=== PATIENT | female | born 1970 | race Caucasian/White ===

== ENCOUNTER 2019-02-06 20:19 | Observation (INO) | payer MEDICARE ==
[~2019-02-06] VITALS: Ht 170.2 cm; Wt 68.6 kg
[2019-02-06] MEDS ORDERED: BAYER CHEWABLE81 MG PO (20:21)
[2019-02-06] MEDS ORDERED: ESTRACE2 MG PO (20:22)
[2019-02-06] MEDS ORDERED: LIPITOR80 MG PO (20:22)
[2019-02-06] MEDS ORDERED: CYCLOBENZAPRINE10 MG PO (20:22)
[2019-02-06] MEDS ORDERED: KLONOPIN1 MG PO (20:22)
[2019-02-06] MEDS ORDERED: LINZESS145 MCG PO (20:23)
[2019-02-06] MEDS ORDERED: PROTONIX40 MG PO (20:23)
[2019-02-06] MEDS ORDERED: NEURONTIN 300300 MG PO (20:23)
[2019-02-06] MEDS ORDERED: EFFEXOR75 MG PO (20:23)
[2019-02-06 20:27] VITALS: BP 130/88
[2019-02-06 20:57] LABS: BASOPHILS 0.2 % (0-2); EOSINOPHILS 1.2 % (0-7); HEMATOCRIT 42.5 % (36.0-48.0); HEMOGLOBIN 15.1 g/dL (12-16); IMMATURE GRANULOCYTES 0.4 % (0-5); LYMPHOCYTES 40.4 % (15-50); MCH 33.4 pg (26.0-34.0); MCHC 35.5 g/dL (31.0-37.0); MEAN PLATELET VOLUME 10.2 fL (7.4-10.4); MONOCYTES 8.3 % (2-11); NEUTROPHILS 49.5 % (40-80); RBC 4.52 10x6/uL (4.00-5.40); RDW 14.2 % (11.5-14.5); WBC 8.1 10x3/uL (4.8-10.8)
[2019-02-06 21:01] LABS: PLATELET COUNT 241 10x3/uL (130-400)
[2019-02-06 21:10] LABS: ALBUMIN 3.8 g/dL (3.4-5.0); ALKALINE PHOSPHATASE 95 U/L (46-116); ALT (SGPT) 16 U/L (10-68); BILIRUBIN - TOTAL 0.33 mg/dL (0.2-1.3); CALC OSMOLALITY 276 mosm/kg (275-300); CALCIUM 9.2 mg/dL (8.5-10.1); CARBON DIOXIDE 27.2 mmol/L (21.0-32.0); CHLORIDE - SERUM 104 mmol/L (98-107); CREATININE - SERUM 0.7 mg/dL (0.6-1.3); GLUCOSE 103 mg/dL (74-106); POTASSIUM - SERUM 3.7 mmol/L (3.5-5.1); PROTEIN - SERUM 7.4 g/dL (6.4-8.2); SODIUM 139 mmol/L (136-145); UREA NITROGEN 10 mg/dL (7-18); eGFR NON AFRICAN AMERICAN > 90 mL/min (90-120)
[2019-02-06 21:20] LABS: APTT 29.8 SECONDS (22.8-39.4); INR 0.93 (0.85-1.17)
[2019-02-06 21:21] LABS: CKMB 0.9 U/L (0.0-3.6); CREATINE KINASE 76 UL (21-215); MAGNESIUM - SERUM 1.8 mg/dL (1.8-2.4)
[2019-02-06 21:24] LABS: TROPONIN-I < 0.017 ng/mL (0.000-0.060)
[2019-02-06 21:25] LABS: CKMB 0.8 U/L (0.0-3.6); CREATINE KINASE 77 UL (21-215); TROPONIN-I < 0.017 ng/mL (0.000-0.060)
--- NOTE | 2019-02-06 21:50 | NUR ---
ADMIT TO ROOM 2113 FROM ER. ALERT/ORIENTED. AMBULATORY. PIV TO LEFT A/C. TELEMETRY STARTED. SR 64. ADMISSION HISTORY AND ASSESSMENT COMPLETED. HOME MEDS REVIEWED. PLAN OF CARE INSTRUCTED ON AND PT NOW RESTING IN BED. DENIES CHEST PAIN AT THIS TIME.
[2019-02-06 23:05] VITALS: BP 146/86; Ht 170.2 cm; Wt 68.6 kg
[2019-02-07] VITALS: BP 146/100
[2019-02-07 02:50] LABS: BASOPHILS 0.4 % (0-2); EOSINOPHILS 1.5 % (0-7); HEMATOCRIT 41.4 % (36.0-48.0); HEMOGLOBIN 14.3 g/dL (12-16); IMMATURE GRANULOCYTES 0.1 % (0-5); LYMPHOCYTES 49.9 % (15-50); MCH 32.4 pg (26.0-34.0); MCHC 34.5 g/dL (31.0-37.0); MCV 93.9 fL (80.0-100.0); MEAN PLATELET VOLUME 10.4 fL (7.4-10.4); NEUTROPHILS 39.1 % (40-80); PLATELET COUNT 229 10x3/uL (130-400); RBC 4.41 10x6/uL (4.00-5.40); RDW 14.4 % (11.5-14.5); WBC 6.9 10x3/uL (4.8-10.8)
[2019-02-07 03:24] LABS: ALBUMIN 3.6 g/dL (3.4-5.0); ALKALINE PHOSPHATASE 87 U/L (46-116); ALT (SGPT) 14 U/L (10-68); BILIRUBIN - TOTAL 0.32 mg/dL (0.2-1.3); CALC OSMOLALITY 277 mosm/kg (275-300); CALCIUM 9.1 mg/dL (8.5-10.1); CARBON DIOXIDE 27.6 mmol/L (21.0-32.0); CHLORIDE - SERUM 106 mmol/L (98-107); CKMB 1.2 U/L (0.0-3.6); CREATINE KINASE 69 UL (21-215); CREATININE - SERUM 0.8 mg/dL (0.6-1.3); GLUCOSE 99 mg/dL (74-106); POTASSIUM - SERUM 3.8 mmol/L (3.5-5.1); PROTEIN - SERUM 6.9 g/dL (6.4-8.2); SODIUM 140 mmol/L (136-145); TROPONIN-I < 0.017 ng/mL (0.000-0.060); UREA NITROGEN 9 mg/dL (7-18); eGFR NON AFRICAN AMERICAN 80 mL/min (90-120)
[2019-02-07 04:00] VITALS: BP 137/91
--- NOTE | 2019-02-07 04:03 | NUR ---
PT RESTING. EKG DONE EARLIER SHOWED SB. KEEPING NPO UNTIL SEEN BY RECYCLE COORDINATOR IN AM.
--- NOTE | 2019-02-07 07:15 | NUR ---
RECEIVED PT IN BED AAOX4 RESP UNLABORED SKIN W/D COLOR WNL DENIES ANY NEEDS OR DISCOMFORT NAD NOTED
[2019-02-07 08:50] VITALS: BP 155/85
[2019-02-07 09:33] LABS: CKMB 0.9 U/L (0.0-3.6); CREATINE KINASE 64 UL (21-215)
[2019-02-07 09:35] LABS: TROPONIN-I < 0.017 ng/mL (0.000-0.060)
[2019-02-07 12:30] VITALS: BP 161/97
[2019-02-07] MEDS ORDERED: CARDIZEM CD120 MG PO (17:11)
--- NOTE | 2019-02-07 18:20 | NUR ---
REVIEWED DISCHARGE INSTRUCTIONS WITH PT STATES UNDERSTANDING COPY GIVEN DCD SALINE LOCK TO RAC WITH IV CATHETER INTACT SITE FREE FROM REDNESS OR EDEMA PT DISCHARGED HOME IN STABLE CONDITION VIA W/C WITH ALL PERSONAL BELONGINGS
--- NOTE | 2019-02-09 09:15 | MORECARE ---
CASE MANAGEMENT DISCHARGE SUMMARY PATIENT: MELANIA NAM UNIT: [id number] ADM DATE: 02/06/19 AGE: 49 : 66 SEX: F ROOM/BED: D.2114 AUTHOR: BRADLY LEDESMA PHYSICIAN: REFERRING PHYSICIAN: YOEL SHERMAN MD DATE OF SERVICE: 02/09/19 Discharge Plan Patient Name: MELANIA NAM Facility: [facility]:[place] : 1970 Planned Disposition: Home Anticipated Discharge Date: 02/07/19 Discharge Date: 02/07/2019 Expected LOS: 1 Initial Reviewer: [email or web address] Initial Review Date: 02/09/2019 Generated: 02/09/19 10:15 am Patient Name: MELANIA NAM Page [id number] at 0915 All edits/amendments must be made on the electronic document DICTATION DATE: 02/09/19914 CERTIFIED INCOME TAX PREPARER: JACQUELYN 02/09/19914 RPT#: [id number] DC DATE:02/07/19 STATUS: DIS IN [facility] [address] [place] [address] END OF REPORT
== END 2019-02-07 18:20 | disposition home or self-care (01) ==
LOC: D.ER 20:19 → OBSVTIME 20:47 → D.M2 20:47
PROVIDERS: Family Medicine; ADMIT Family Medicine; ATTEND Family Medicine
DX: I20.0 Unstable angina (principal); I10 Essential (primary) hypertension; E78.5 Hyperlipidemia, unspecified; R07.9 Chest pain, unspecified; Z86.73 Personal history of transient ischemic attack (TIA), and cerebral infarction without residual deficits; F17.200 Nicotine dependence, unspecified, uncomplicated